=== PATIENT | female | born 1980 ===

== ENCOUNTER 2021-09-03 08:52 | Day surgery (SDC) | payer OTHER ==
[~2021-09-03 08:52] MED LIST: SYNTHROID75 MCG PO
== END 2021-09-03 18:15 | disposition home or self-care (01) ==
LOC: CIR.AMB 08:52
PROVIDERS: ATTEND Obstetrics & Gynecology
DX: N84.0 Polyp of corpus uteri (principal); Z20.822 Contact with and (suspected) exposure to COVID-19